=== PATIENT | female | born 1955 | race Caucasian/White ===

== ENCOUNTER 2016-05-31 07:41 | Day surgery (SDC) | payer MEDICAID ==
[~2016-05-31 07:41] MED LIST: Midazolam 1 MG/ML 2 ML SDV ONE; Propofol 200 MG/20 ML SDV ONE; fentaNYL 100 MCG/2 ML SDV ONE
[2016-05-31] MEDS ORDERED: Glycopyrrolate 0.2 MG/ML 2 ML SYRINGE IVPUSH ONE (08:15)
[2016-05-31] MEDS ORDERED: Dextrose 5%-Lactated Ringers 1,000 ML IV SCH (08:15)
[2016-05-31 10:57] VITALS: BP 102/64
--- NOTE | 2016-06-02 14:07 | OR ---
DATE OF PROCEDURE: 05/31/2016 PREOPERATIVE DIAGNOSIS: Laryngopharyngeal dysphagia. POSTOPERATIVE DIAGNOSIS: Laryngopharyngeal dysphagia with normal upper gastrointestinal endoscopic exam, status post Marnia-en-Y gastric bypass. OPERATIVE PROCEDURE: Upper GI endoscopy with biopsies of gastric pouch for CLOtest. ANESTHESIA: IV sedation. INDICATIONS FOR PROCEDURE: This is a 60-year-old, status post Marina-en-Y gastric bypass in early , presenting with some increasing dysphagia. This is referable to the laryngopharyngeal area to rule out any anatomic abnormalities. The patient is to undergo an upper GI endoscopy. Potential risks of the procedure including bleeding and perforation were discussed, and the patient wishes to proceed. DETAILS OF PROCEDURE: The patient was taken to the operating room, placed in a left lateral decubitus position. IV sedation was administered, after which the upper GI endoscope was passed orally through the length of the esophagus into the stomach pouch, from there through the gastrojejunostomy and into the Marina limb roughly 20 cm. The findings included normal hypopharynx, larynx, and upper esophageal sphincter. No specific abnormalities were noted in that area, and those can be redness or inflammation of the esophageal body. EG junction, gastric pouch, gastrojejunostomy, and Marina limb were all otherwise entirely normal with no areas of stricturing or significant inflammation. To establish the patient's H. pylori status, CLOtest was obtained from the gastric pouch. Minimal bleeding from the biopsy sites was seen. The patient was taken to the recovery room in satisfactory condition after removal of the scope. The plan will be to obtain an x-ray swallow study with Speech Pathology consult and then follow up with Jennifer Figueroa thereafter. Bijan Salmon MD /[id number]
== END 2016-05-31 11:13 | disposition home or self-care (01) ==
LOC: JP.SDS 07:41
PROVIDERS: ATTEND Surgery
DX: R13.13 Dysphagia, pharyngeal phase (principal); F41.8 Other specified anxiety disorders; E03.9 Hypothyroidism, unspecified; Z98.84 Bariatric surgery status; Z88.2 Allergy status to sulfonamides; Z91.09 Other allergy status, other than to drugs and biological substances
CPT/HCPCS: 43239; 87081; J2250; J2704; J3010; J7042

== ENCOUNTER 2017-01-30 07:10 | Day surgery (SDC) | payer MEDICAID ==
[2017-01-30] MEDS ORDERED: Dextrose 5%-Lactated Ringers 1,000 ML IV SCH (07:30)
[2017-01-30] MEDS ORDERED: Propofol 200 MG/20 ML SDV ONE (08:48)
[2017-01-30] MEDS ORDERED: fentaNYL 100 MCG/2 ML SDV ONE (08:48)
[2017-01-30] MEDS ORDERED: Midazolam 1 MG/ML 2 ML SDV ONE (08:48)
[2017-01-30 10:34] VITALS: BP 96/55
--- NOTE | 2017-02-02 11:20 | OR ---
DATE OF PROCEDURE: 01/30/2017 PREOPERATIVE DIAGNOSIS: Indications for screening colonoscopy. POSTOPERATIVE DIAGNOSIS: Colonoscopy showing small polyps x2. OPERATIVE PROCEDURES: Flexible colonoscopy with; 1. Biopsy of polyp located at splenic flexure (03371). 2. Excision of polyp by snare technique at 30 cm from the dentate line (75145). ANESTHESIA: IV sedation. INDICATION FOR PROCEDURE: A 61-year-old presenting with indications for screening colonoscopy. Plan is to proceed with a flexible colonoscopy with biopsies and/or polypectomy as indicated. Potential risks including bleeding and perforation were discussed, and the patient wishes to proceed. DETAILS OF PROCEDURE: The patient was taken to the operating room and placed in a left lateral decubitus position. IV sedation was administered. The initial digital rectal exam was performed and was unremarkable. The scope was then passed through the rectum with retroflexion revealing uncomplicated hemorrhoidal columns. The scope was then eventually passed to the level of the cecum. The prep was fairly good with there being only a small amount of liquid stool present. To that level, there were no diverticula and no areas of colitis. There were 2 small polyps, one located in the splenic flexure. This was excised by means of 2 bites with the biopsy forceps, which appeared to completely remove the polyp. Hemostasis did not create any problem there. The patient had a slightly larger polyp located at 30 cm from the dentate line, which was excised by means of cautery snare technique. This was likewise sent for histologic evaluation. Good hemostasis was noted at this site as well. Apart from that, there were no additional areas of polyps or signs of neoplasia. The scope was then withdrawn, and the procedure then concluded. We will await the pathology reports. These may both be hyperplastic polyps, in which case, a followup colonoscopy should be in 10 years. If they are adenomatous polyps, then follow up colonoscopy should be in 2 years. Bijan Salmon MD /[id number]
== END 2017-01-30 10:50 | disposition home or self-care (01) ==
LOC: JP.SDS 07:10
PROVIDERS: ATTEND Surgery
DX: Z12.11 Encounter for screening for malignant neoplasm of colon (principal); K63.5 Polyp of colon; Z88.2 Allergy status to sulfonamides; Z88.8 Allergy status to other drugs, medicaments and biological substances; F41.9 Anxiety disorder, unspecified; F32.9 Major depressive disorder, single episode, unspecified
CPT/HCPCS: 45380; 45385; 88305; J2250; J2704; J3010; J7042

== ENCOUNTER 2018-10-15 11:41 | Emergency (ER) | payer MEDICAID ==
[2018-10-15 12:18] VITALS: BP 112/55
--- NOTE | 2018-10-15 12:50 | EDM.PDOC ---
ED HPI GENERAL MEDICAL PROBLEM - General Chief Complaint: Lower Extremity Injury/Pain Stated Complaint: PAIN IN LEFT KNEE INJURED Time Seen by Provider: 10/15/18 12:30 Source of Information: Reports: Patient, Family History Limitations: Reports: No Limitations - History of Present Illness INITIAL COMMENTS - FREE TEXT/NARRATIVE: 63-year-old female with left knee pain for the past 10 days. She stepped on some uneven ground and felt something happened to her knee. Since that time she' s had some pain with weightbearing especially in the mornings. No swelling, no bruising or deformity. She is able to move the leg fairly easily without discomfort. Onset: Sudden Duration: Day(s): (9 days ago) Location: Reports: Lower Extremity, Left Associated Symptoms: Reports: No Other Symptoms - Related Data Allergies Allergy/AdvReac Type Severity Reaction Status Date / Time Sulfa (Sulfonamide Allergy Hives Verified 01/30/17 07:24 Antibiotics) iron [From Venofer] AdvReac Hives Verified 01/30/17 07:24 Home Meds: Home Meds Levothyroxine [Synthroid] 100 mcg PO ACBREAKFAST 09/20/15 [History] Sertraline [Zoloft] 100 mg PO DAILY 09/20/15 [History] Biotin 5,000 mcg PO DAILY 05/27/16 [History] Calcium Citrate/Vitamin D3 [Calcium Citrate + D] 1 tab PO BID 05/27/16 [History] Cyanocobalamin (Vitamin B-12) [Vitamin B-12] 1,000 mcg SL DAILY 05/27/16 [ History] Ergocalciferol (Vitamin D2) [Vitamin D] 1,000 unit PO DAILY 05/27/16 [History] Multivitamin [Multiple Vitamins] 2 tab PO DAILY 05/27/16 [History] Vitamin B Complex [B Complex] 2 tab PO DAILY 05/27/16 [History] Vitamin E 1,000 unit PO DAILY 05/27/16 [History] Zinc 100 mg PO DAILY 05/27/16 [History] valACYclovir [Valtrex] 500 mg PO BID 05/27/16 [History] busPIRone [Buspar] 10 tab PO BID 06/02/17 [History] Past Medical History HEENT History: Reports: Impaired Vision Other HEENT History: Glasses, excessive tear production right eye Gastrointestinal History: Reports: Chronic Diarrhea, GERD [employer]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: Musculoskeletal History: Reports: None Psychiatric History: Reports: Depression Endocrine/Metabolic History: Reports: Hypothyroidism Hematologic History: Reports: Iron Deficiency Oncologic (Cancer) History: Reports: Basal Cell Carcinoma - Infectious Disease History Infectious Disease History: Reports: Chicken Pox, Mumps, Shingles - Past Surgical History Head Surgeries/Procedures: Reports: None HEENT Surgical History: Reports: None GI Surgical History: Reports: Bariatric Procedure, Cholecystectomy, Colonoscopy Female Surgical History: Reports: Tubal Ligation Endocrine Surgical History: Reports: None Musculoskeletal Surgical History: Reports: Carpal Tunnel Oncologic Surgical History: Reports: None Dermatological Surgical History: Reports: None Social & Family History - Family History Family Medical History: Noncontributory Cardiac: Reports: CA, Stent Other Cardiac Family History: Father Musculoskeletal: Reports: Arthritis Endocrine/Metabolic: Reports: Hypothyroidism Hematologic: Reports: Anemia Oncologic: Reports: Colon, Other (See Below) Other Oncologic Family History: paternal & maternal grandfathers - Caffeine Use Caffeine Use: Reports: Coffee, Soda Review of Systems - Review of Systems Review Of Systems: See Below Constitutional: Denies: Fever Respiratory: Reports: No Symptoms Cardiovascular: Reports: No Symptoms GI/Abdominal: Reports: No Symptoms Skin: Denies: Bruising Neurological: Reports: No Symptoms. Denies: Paresthesia ED EXAM, GENERAL - Physical Exam Exam: See Below Exam Limited By: No Limitations General Appearance: Alert, No Apparent Distress Respiratory/Chest: No Respiratory Distress, Lungs Clear Extremities: Other (Exam of the knees shows no asymmetry, the left knee has no effusion. She is tender over the lateral aspect of the knee and the proximal aspect of the fibula. No crepitus or deformity.) Course - Vital Signs Last Recorded V/S: Last Vital Signs Temp 96.4 F 10/15/18 13:04 Pulse 71 10/15/18 13:04 Resp 16 10/15/18 13:04 BP 112/55 L 10/15/18 13:04 Pulse Ox 96 10/15/18 13:04 - Re-Assessments/Exams Free Text/Narrative Re-Assessment/Exam: 10/15/18 12:50 The left knee x-ray was obtained. 10/15/18 13:06 X-ray is normal, a three-inch Cesar wrap was applied to the knee for support. Patient will increase activity as tolerated and recheck with orthopedics if not improving satisfactorily. Departure - Departure Time of Disposition: 13:24 Disposition: Home, Self-Care 01 Clinical Impression: Sprain of left knee Qualifiers: Encounter type: initial encounter Involved ligament of knee: lateral collateral ligament Qualified Code(s): S83.422A - Sprain of lateral collateral ligament of left knee, initial encounter - Discharge Information Instructions: Knee Sprain, Adult Referrals: Deny Lazaro MD [Primary Care Provider] - Forms: ED Department Discharge Care Plan Goals: Wrap knee for support, increase activity as tolerated and recheck at the clinic with orthopedics if not improving satisfactorily over the next several days.
--- NOTE | 2018-10-15 13:18 | CRLCR ---
Indication: Missed a step. Pain. Technique: Three views of the left knee were obtained. Comparison: None Findings: Moderate narrowing of the medial compartment is identified. Spurring of the tibial spines is identified. Narrowing of the patellofemoral articulation is identified. No acute fracture or subluxation is identified. Impression: Degenerative change. Dictated by Dasia Roman MD @ Oct 15 2018 1:15PM Signed by Dr. Dasia Roman @ Oct 15 2018 1:16PM
== END 2018-10-15 13:24 | disposition home or self-care (01) ==
LOC: JP.ED 11:41
DX: S83.422A Sprain of lateral collateral ligament of left knee, initial encounter (principal); E03.9 Hypothyroidism, unspecified; F32.9 Major depressive disorder, single episode, unspecified; Z88.2 Allergy status to sulfonamides; Z88.8 Allergy status to other drugs, medicaments and biological substances; Z90.49 Acquired absence of other specified parts of digestive tract; Z98.51 Tubal ligation status; Z79.899 Other long term (current) drug therapy; X58.XXXA Exposure to other specified factors, initial encounter
CPT/HCPCS: 73562-LT; 99283-25